=== PATIENT | male | born 1985 | race Caucasian/White ===

== ENCOUNTER 2017-06-09 16:04 | Emergency (ER) | payer BC, OTHER ==
[~2017-06-09] VITALS: Ht 177.8 cm; Wt 101.0 kg
[~2017-06-09 16:04] MED LIST: CYCL-1 PO
[2017-06-09 16:27] VITALS: BP 139/68
[2017-06-09] MEDS ORDERED: rabies immune globulin/PF 150 unit/ml inj IMVAC STA (17:07)
[2017-06-09] MEDS ORDERED: rabies vaccine (PCEC)/PF 2.5 unit kit IMVAC ONE (17:10)
== END 2017-06-09 19:17 | disposition home or self-care (01) ==
LOC: ER 16:04
DX: Z23 Encounter for immunization (principal); G89.29 Other chronic pain; Z79.899 Other long term (current) drug therapy
CPT/HCPCS: 90375; 90471; 90675; 96372; 99284

== ENCOUNTER 2017-06-23 16:52 | Emergency (ER) | payer OTHER ==
[~2017-06-23] VITALS: Ht 177.8 cm; Wt 59.0 kg
[2017-06-23] MEDS ORDERED: rabies vaccine (PCEC)/PF 2.5 unit kit IMVAC ONE (17:00)
[2017-06-23 17:30] VITALS: BP 151/97
== END 2017-06-23 17:31 | disposition home or self-care (01) ==
LOC: ER 16:53
DX: Z23 Encounter for immunization (principal); G89.29 Other chronic pain
CPT/HCPCS: 90471; 90675; 99283